=== PATIENT | female | born 1970 | race African-American/Black ===

== ENCOUNTER 2025-01-18 10:10 | Emergency (ER) | payer MEDICARE, MEDICAID ==
[~2025-01-18] VITALS: Ht 172.7 cm; Wt 58.1 kg
[2025-01-18] MEDS ORDERED: Dexamethasone Sodium Phospha 20 MG/5 ML VIAL IM ONE (10:35)
[2025-01-18] MEDS ORDERED: METHOCARBAMOL750 M1 PO (10:38)
[2025-01-18] MEDS ORDERED: NAPROSYN500 MG PO (10:38)
[2025-01-18] MEDS ORDERED: PREDNISONE20 M1 PO (10:38)
== END 2025-01-18 10:47 | disposition home or self-care (01) ==
LOC: ED 10:10
DX: M65.332 Trigger finger, left middle finger (principal); M06.9 Rheumatoid arthritis, unspecified; Z88.0 Allergy status to penicillin; Z88.8 Allergy status to other drugs, medicaments and biological substances